=== PATIENT | male | born 1970 | race Caucasian/White ===

== ENCOUNTER → 2020-05-05 08:02 | Outpatient (BNVA) | payer MEDICAID, SELFPAY | PROVIDERS: Family Provider Nurse Practitioner Family; PCP Nurse Practitioner Family; Visit Provider Specialist | DX: G40.309 Generalized idiopathic epilepsy and epileptic syndromes, not intractable, without status epilepticus (principal); E83.51 Hypocalcemia; G23.8 Other specified degenerative diseases of basal ganglia; E88.9 Metabolic disorder, unspecified; R25.1 Tremor, unspecified | CPT/HCPCS: 99214 ==

== ENCOUNTER 2020-05-05 08:49 | Outpatient (CLI) | payer MEDICAID, SELFPAY ==
[2020-05-05 09:31] LABS: Basophils # 0.1 10^3/uL (0.0-0.1); Eosinophils # 0.1 10^3/uL (0.0-0.8); Eosinophils % 2.8 %; Hematocrit 39.3 % (42.0-52.0); Hemoglobin 13.2 g/dL (11.7-16.6); Lymphocytes # 1.3 10^3/uL (0.8-4.8); Mean Corpuscular HGB Conc 33.6 g/dL (30.0-36.0); Mean Corpuscular Hemoglobin 29.2 pg (28.0-34.0); Mean Corpuscular Volume 86.9 fL (80-94); Mean Platelet Volume 10.7 fL (7.4-10.4); Monocytes # 0.4 10^3/uL (0.2-0.9); Monocytes % 6.9 %; Neutrophils # 3.26 10^3/uL (1.8-7.7); Neutrophils % 63.9 %; Nucleated Red Blood Cells % 0 %; Platelet Count 244 10^3/cmm (130-400); Red Blood Count 4.52 10^6/uL (4.1-5.3); Red Cell Distribution Width 12.5 % (12.1-15.1); White Blood Count 5.1 10^3/uL (4.0-10.0)
[2020-05-05 10:01] LABS: Phenytoin Dilantin 13.6 ug/mL (10-20)
[2020-05-05 10:03] LABS: Alanine Aminotransferase 13 U/L (0-41); Albumin Level 4.6 g/dL (3.5-5.2); Alkaline Phosphatase 85 IU/L (40-130); Anion Gap 16.6 (5-19); Aspartate Amino Transferase 22 U/L (0-40); Blood Urea Nitrogen 17 mg/dL (6-20); Calcium 6.9 mg/dL (8.5-10.5); Carbon Dioxide 26 mmol/L (22-29); Chloride 102 mmol/L (98-107); Globulin 2.7 g/dL (1.3-4.6); Glomerular Filtration Rate 70.9 mL/min (90-130); Glucose 104 mg/dL (65-115); Osmolality Calculated 289 mOsm/kg (285-295); Potassium 3.6 mmol/L (3.5-5.1); Sodium 141 mmol/L (136-145); Total Bilirubin 0.3 mg/dL (0.15-1.2); Total Protein 7.3 g/dL (6.6-8.7)
== END 2020-05-05 08:50 | disposition home or self-care (01) ==
LOC: LAB 08:51
PROVIDERS: PCP Nurse Practitioner Family; Visit Provider Specialist
DX: R56.9 Unspecified convulsions (principal); R25.1 Tremor, unspecified
CPT/HCPCS: 80053; 80185; 84443; 85025

== ENCOUNTER → 2021-05-06 09:20 | Outpatient (BNVA) | payer MEDICAID, SELFPAY | PROVIDERS: PCP Nurse Practitioner Family; Visit Provider Specialist | DX: G40.309 Generalized idiopathic epilepsy and epileptic syndromes, not intractable, without status epilepticus (principal); E83.51 Hypocalcemia; G23.8 Other specified degenerative diseases of basal ganglia; E88.9 Metabolic disorder, unspecified | CPT/HCPCS: 99214 ==

== ENCOUNTER → 2021-11-09 08:08 | Outpatient (BNVA) | payer MEDICAID, SELFPAY | PROVIDERS: PCP Nurse Practitioner Family; Visit Provider Specialist | DX: G40.309 Generalized idiopathic epilepsy and epileptic syndromes, not intractable, without status epilepticus (principal); G23.8 Other specified degenerative diseases of basal ganglia; E83.51 Hypocalcemia | CPT/HCPCS: 99213; 99214 ==

== ENCOUNTER → 2022-11-08 08:13 | Outpatient (BNVA) | payer MEDICAID, SELFPAY | PROVIDERS: PCP Nurse Practitioner Family; Visit Provider Specialist | DX: G23.8 Other specified degenerative diseases of basal ganglia (principal); E83.51 Hypocalcemia; G40.309 Generalized idiopathic epilepsy and epileptic syndromes, not intractable, without status epilepticus; E88.9 Metabolic disorder, unspecified | CPT/HCPCS: 99213 ==

== ENCOUNTER 2023-10-05 06:00 | Outpatient (RCR) | payer MEDICAID, SELFPAY | END 2023-10-25 23:59 | disposition home or self-care (01) | LOC: TPT 06:00 | PROVIDERS: Visit Provider Nurse Practitioner Family | DX: R26.9 Unspecified abnormalities of gait and mobility (principal); M62.81 Muscle weakness (generalized); R26.81 Unsteadiness on feet; R27.0 Ataxia, unspecified | CPT/HCPCS: 97110; 97163 ==

== ENCOUNTER 2023-10-26 06:00 | Outpatient (RCR) | payer MEDICAID, SELFPAY | END 2023-11-23 23:59 | disposition home or self-care (01) | LOC: TPT 06:00 | PROVIDERS: Visit Provider Nurse Practitioner Family | DX: R26.9 Unspecified abnormalities of gait and mobility (principal); M62.81 Muscle weakness (generalized); R26.81 Unsteadiness on feet; R27.0 Ataxia, unspecified | CPT/HCPCS: 97110 ==

== ENCOUNTER → 2023-11-14 12:25 | Outpatient (BNVA) | payer MEDICAID, SELFPAY | PROVIDERS: Visit Provider Specialist | DX: G40.309 Generalized idiopathic epilepsy and epileptic syndromes, not intractable, without status epilepticus (principal); G23.8 Other specified degenerative diseases of basal ganglia; E88.9 Metabolic disorder, unspecified | CPT/HCPCS: 99214 ==

== ENCOUNTER 2023-11-24 06:00 | Outpatient (RCR) | payer MEDICAID, SELFPAY | END 2023-12-24 23:59 | disposition home or self-care (01) | LOC: TPT 06:00 | PROVIDERS: Visit Provider Nurse Practitioner Family | DX: R26.9 Unspecified abnormalities of gait and mobility (principal); M62.81 Muscle weakness (generalized); R26.81 Unsteadiness on feet; R27.0 Ataxia, unspecified | CPT/HCPCS: 97110 ==

== ENCOUNTER 2023-12-25 06:00 | Outpatient (RCR) | payer MEDICAID, SELFPAY | END 2024-01-23 23:59 | disposition home or self-care (01) | LOC: TPT 06:00 | PROVIDERS: Visit Provider Nurse Practitioner Family | DX: R26.9 Unspecified abnormalities of gait and mobility (principal); M62.81 Muscle weakness (generalized); R26.81 Unsteadiness on feet; R27.0 Ataxia, unspecified | CPT/HCPCS: 97110 ==

== ENCOUNTER 2024-01-24 06:00 | Outpatient (RCR) | payer MEDICAID, SELFPAY | END 2024-02-23 23:59 | disposition home or self-care (01) | LOC: TPT 06:00 | PROVIDERS: Visit Provider Nurse Practitioner Family | DX: R26.9 Unspecified abnormalities of gait and mobility (principal); M62.81 Muscle weakness (generalized); R26.81 Unsteadiness on feet; R27.0 Ataxia, unspecified | CPT/HCPCS: 97110; 97116 ==

== ENCOUNTER 2024-02-24 06:00 | Outpatient (RCR) | payer MEDICAID, SELFPAY | END 2024-03-06 23:59 | disposition home or self-care (01) | LOC: TPT 06:00 | PROVIDERS: Visit Provider Nurse Practitioner Family | DX: R26.9 Unspecified abnormalities of gait and mobility (principal); M62.81 Muscle weakness (generalized); R26.81 Unsteadiness on feet; R27.0 Ataxia, unspecified | CPT/HCPCS: 97110 ==